=== PATIENT | female | born 1970 | race Caucasian/White ===

== ENCOUNTER 2017-03-20 16:52 | Emergency (ER) | payer MEDICARE ==
[~2017-03-20] VITALS: Ht 162.6 cm; Wt 70.0 kg
[~2017-03-20 16:52] MED LIST: LEVA750T PO; METR-1 PO
[2017-03-20 17:08] VITALS: BP 162/89; PULSE 102; RESP 18; TEMP 99; O2SAT 100
[2017-03-20] MEDS ORDERED: ZANA4CAP PO (17:12)
[2017-03-20] MEDS ORDERED: HYDR-3583 PO (17:12)
[2017-03-20] MEDS ORDERED: ACETAMINOPHEN/HYDROcodone 325 MG/5 MG TAB PO ONE (17:15)
--- NOTE | 2017-03-20 17:15 | PD ---
HPI Chief Complaint: Complaint Time Seen by Provider: 17:05 Travel History International Travel<30 days: No Contact w/Intl Traveler<30days: No Traveled to known affect area: No History of Present Illness HPI 46-year-old female arrives complaining of lower abdominal pain for one year. She's also had back pain for the last week or so. She notes that insertion of tampons has become somewhat problematic due to the sensation of a bulge on one side. She's had no vaginal bleeding or discharge. No urinary complaint no nausea vomiting or fever. Abdominal pain is more or less constant mild and achy. Back pain radiates down the right leg. PFSH Past Medical History ?: Not Past Surgical History Hysterectomy: Yes Social History Alcohol Use: No Tobacco Use: Yes Substance Use: No Allergies-Medications (Allergen,Severity, Reaction): Coded Allergies: No Known Allergies (Unverified , 03/23/16) Reported Meds & Prescriptions Reported Meds & Active Scripts Active Reported Zanaflex (Tizanidine HCl) 4 Mg Cap 4 Mg PO HS Hydrocodone-Acetaminophen 10-325 mg Tab 1 Tab PO Q6H PRN Review of Systems Except as stated in HPI: all other systems reviewed are Neg General / Constitutional: No: Fever Physical Exam Narrative GENERAL: 46-year-old female pleasant well-nourished well-developed SKIN: Focused skin assessment warm/dry. HEAD: Atraumatic. Normocephalic. EYES: Pupils equal and round. No scleral icterus. No injection or drainage. ENT: No nasal bleeding or discharge. Mucous membranes pink and moist. NECK: Trachea midline. No JVD. CARDIOVASCULAR: Regular rate and rhythm. No murmur appreciated. RESPIRATORY: No accessory muscle use. Clear to auscultation. Breath sounds equal bilaterally. GASTROINTESTINAL: Soft. No focus of tenderness. No palpable mass. MUSCULOSKELETAL: Ambulatory. No gross deformity. Minimal tenderness overlying the right iliac crest. NEUROLOGICAL: Awake and alert. No obvious cranial nerve deficits. Motor grossly within normal limits. Normal speech. 2+ DTRs. Hip flexion 5 over 5 bilaterally. He flexion and extension 5 over 5 bilaterally. Ankle flexion and extension 5 over 5 bilaterally. Great toe flexion extension 5 over 5 bilaterally. PSYCHIATRIC: Appropriate mood and affect; insight and judgment normal. Data Data Last Documented VS Vital Signs Date Time Temp Pulse Resp B/P Pulse Ox O2 Delivery O2 Flow Rate FiO2 7/24/17 17:53 89 17 148/87 98 Room Air 03/20/17 17:08 99.0 Vital signs reviewed Orders Urinalysis - C+S If Indicated (03/20/17 16:58) Acetamin-Hydrocod 325-5 Mg (Carmel 5-325 (03/20/17 17:15) Labs Laboratory Tests Test 03/20/17 17:04 Urine Collection Type CLEAN CATCH Urine Color YELLOW Urine Turbidity CLEAR Urine pH 5.5 Urine Specific [place] 1.027 Urine Protein 30 mg/dL Urine Glucose (UA) NEG mg/dL Urine Ketones NEG mg/dL Urine Occult Blood LARGE Urine Nitrite NEG Urine Bilirubin NEG Urine Leukocyte Esterase NEG Urine RBC 25-49 /hpf Urine WBC 0-2 /hpf Urine Squamous Epithelial 0-5 /hpf Cells Urine Bacteria FEW /hpf Microscopic Urinalysis Comment CULT NOT INDICATED MDM Medical Decision Making Medical Screen Exam Complete: Yes Emergency Medical Condition: Yes Medical Record Reviewed: Yes Differential Diagnosis UTI, hematuria, viral syndrome, arthritis, autoimmune disease, neoplasia Narrative Course 175: Upon reassessment patient is resting comfortably in bed. Results were discussed. Patient explained she is experiencing total body fatigue and pain. She's had no fever. Referral for urology provided. Return precautions discussed. Patient is happy with the plan. Of note she is tachycardic here upon arrival with a pulse of 102 which improved to 89 with BP 148/87. A year ago almost to the day the patient was also seen here and had a heart rate again of 103. Diagnosis Primary Impression: Hematuria Qualified Code: R31.9 - Hematuria, unspecified type Referrals: Arun Lam MD 2 days Additional Instructions: You have a choice when it comes to health care, and we are glad that you chose [facility]. Hopefully, we have met your expectations on today's visit. You are welcome to return to [facility] at any time, as we are committed to meeting the health care needs of our community. Med/Other Pt SpecificInfo: No Change to Meds Disposition: 01 DISCHARGE HOME Condition: Serjio Cast MD Mar 20, 2017 17:15
[2017-03-20 17:21] LABS: BLOOD, URINE LARGE (NEG); GLUCOSE,URINE NEG (NEG); KETONE, URINE NEG (NEG); NITRITE,URINE NEG (NEG); PH, URINE 5.5 (5.0-8.5)
[2017-03-20 17:24] LABS: METHOD OF COLLECTION CLEAN CATCH; URINE COLOR YELLOW (YELLW/STRAW)
[2017-03-20 17:26] LABS: BACTERIA, URINE FEW /hpf; COMMENT (UR) CULT NOT INDICATED; CULTURE IF INDICATED CULT NOT INDICATED; SQUAMOUS EPITHELIAL CELL URINE 0-5 /hpf (0-5); WBC, URINE 0-2 /hpf (0-5)
[2017-03-20 17:53] VITALS: BP 148/87; PULSE 89; RESP 17; O2SAT 98
== END 2017-03-20 18:22 | disposition home or self-care (01) ==
LOC: PHED 16:52
DX: R31.9 Hematuria, unspecified (principal); Z72.0 Tobacco use
CPT/HCPCS: 81001; 99283

== ENCOUNTER 2017-05-15 13:43 | Emergency (ER) | payer MEDICARE ==
[~2017-05-15 13:43] MED LIST changes: +HYDR-3583 PO; -LEVA750T PO; -METR-1 PO; +ZANA4CAP PO
[2017-05-15 13:49] VITALS: BP 167/81; PULSE 102; RESP 20; TEMP 98.6; O2SAT 99
[2017-05-15] MEDS ORDERED: SOMA250T PO (13:58)
[2017-05-15] MEDS ORDERED: PRED20 PO (14:07)
--- NOTE | 2017-05-15 14:16 | PD ---
HPI Chief Complaint: Musculoskeletal Complaint Time Seen by Provider: 13:52 Travel History International Travel<30 days: No Contact w/Intl Traveler<30days: No Traveled to known affect area: No History of Present Illness HPI 46-year-old female presents to the emergency room for evaluation of acute on chronic neck pain that started about 3 days ago without trauma or injury. Patient believes she has a pinched nerve. States pain is severe in the mid lower cervical spine with radiation down her right back and her right upper extremity. She has associated paresthesias in the fourth and fifth fingers. Pain is worsened with any range of motion of the neck, back, or upper extremities. She has been taking her prescribed hydrocodone and Soma without any relief in symptoms. Her primary care physician is in [place] and she can not get back to [place] for several weeks. 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 She last had a myelogram 4 years ago. PFSH Past Surgical History Hysterectomy: Yes Social History Alcohol Use: No Tobacco Use: Yes Substance Use: No Allergies-Medications (Allergen,Severity, Reaction): Coded Allergies: No Known Allergies (Unverified , 05/15/17) Reported Meds & Prescriptions Reported Meds & Active Scripts Active Reported Soma (Carisoprodol) 250 Mg Tab 250 Mg PO QID PRN Zanaflex (Tizanidine HCl) 4 Mg Cap 4 Mg PO HS Hydrocodone-Acetaminophen 10-325 mg Tab 1 Tab PO Q6H PRN Review of Systems Except as stated in HPI: all other systems reviewed are Neg Physical Exam Narrative GENERAL: Well-nourished, well-developed female in no acute distress. Afebrile. Ambulatory. SKIN: Focused skin assessment warm/dry. No erythema or ecchymosis. HEAD: Normocephalic. EYES: No scleral icterus. No injection or drainage. NECK: Supple, trachea midline. No JVD or lymphadenopathy. No midline tenderness. Mild tenderness to palpation over the lower cervical paraspinous musculature. CARDIOVASCULAR: Regular rate and rhythm without murmurs, gallops, or rubs. RESPIRATORY: Breath sounds equal bilaterally. No accessory muscle use. MUSCULOSKELETAL: No cyanosis, or edema. Strength 4/5 but equal in bilateral upper extremities. Data Data Last Documented VS Vital Signs Date Time Temp Pulse Resp B/P (MAP) Pulse Ox O2 Delivery O2 Flow Rate FiO2 05/15/17 13:49 98.6 102 20 167/81 [phone]) [phone] [facility] Medical Decision Making Medical Screen Exam Complete: Yes Emergency Medical Condition: Yes Medical Record Reviewed: Yes Differential Diagnosis Nerve impingement, muscle spasm, strain, fracture, slipped disc Narrative Course 46-year-old female presents to the emergency room for evaluation of acute on chronic neck pain radiates down her back and upper extremity. Last myelogram was 4 years ago. Patient denies trauma or injury. States she woke up with the pain and believes she may have pinched a nerve. She could not get in her primary care physician because he is out of state. She takes her prescribed hydrocodone and Soma without any relief in symptoms. Pain is worsened with range of motion. History and physical exam are consistent with nerve impingement. No indication for emergent imaging. Patient was told to follow- up with her primary care physician for outpatient MRI if symptoms persist. It was recommended she see pain management for management of chronic pain including steroid injections, physical therapy, or possible surgery because her pain medications are no longer working. Diagnosis Primary Impression: Cervical nerve root impingement Referrals: Primary Care Physician Additional Instructions: Rest and drink plenty of fluids. Take prescribed medications as directed, as needed for pain. Prednisone as directed, until gone. Take ibuprofen with food as directed, as needed for pain. Apply ice to the affected area for 20 minutes at a time, as needed for pain and swelling. Follow-up with a primary care physician. Return to the emergency room for worsening symptoms. Med/Other Pt SpecificInfo: Prescription(s) given Scripts Prednisone (Prednisone) 20 Mg Tab 40 MG PO DAILY, #10 TAB 0 Refills Take 40 mg (2 tablets) daily for 5 days Prov: Noé Garcia MD 05/15/17 Disposition: 01 DISCHARGE HOME Condition: Stable Yenni Schmidt May 15, 2017 14:16
[2017-05-15 14:26] VITALS: BP 167/88
== END 2017-05-15 14:30 | disposition home or self-care (01) ==
LOC: PHEFT 13:43
DX: G54.2 Cervical root disorders, not elsewhere classified (principal); G89.29 Other chronic pain; M54.2 Cervicalgia; F17.210 Nicotine dependence, cigarettes, uncomplicated
CPT/HCPCS: 99283